=== PATIENT | female | born 1960 | race Hispanic/Latino ===

== ENCOUNTER 2023-04-10 07:03 | Day surgery (SDC) | payer OTHER ==
[~2023-04-10] VITALS: Ht 152.4 cm; Wt 50.3 kg
[2023-04-10] VITALS (10 sets, daily range): BP systolic 103–121; BP diastolic 59–70; PULSE 62–83; RESP 15–20
[~2023-04-10 07:03] MED LIST: 0.9%NACL 1000ML 1,000 ML IV ONE; METF-527 PO; METO200T49 PO; SACU1TAB7 PO; WARF-57 PO
[2023-04-10] MEDS ORDERED: PROPOFOL 10 MG/ML 20ML VIAL IV ONE (09:12)
== END 2023-04-10 10:55 | disposition home or self-care (01) ==
LOC: ENDO 07:03 → DAH 07:03 → ENDO 10:55
PROVIDERS: ATTEND Internal Medicine Gastroenterology
DX: Z12.11 Encounter for screening for malignant neoplasm of colon (principal); C7A.026 Malignant carcinoid tumor of the rectum; I10 Essential (primary) hypertension; E11.9 Type 2 diabetes mellitus without complications; Z86.010 Personal history of colon polyps; Z79.899 Other long term (current) drug therapy; Z95.0 Presence of cardiac pacemaker; Z79.84 Long term (current) use of oral hypoglycemic drugs; Z98.890 Other specified postprocedural states
CPT/HCPCS: 82948 ×2; 45385; J7030 ×2; J2704; A4620; A4215 ×3; A4223; A4657; A7002; A4222; A4221; A4663; A4606; J3490